=== PATIENT | male | born 1945 | race Caucasian/White ===

== ENCOUNTER 2018-03-24 12:06 | Inpatient (IN) | payer MEDICARE ==
[2018-03-24] MEDS ORDERED: Bisacodyl 10 MG Supp RECTAL PRN (16:55)
[2018-03-24] MEDS ORDERED: hydrOXYzine HCl 25 MG Tab PO PRN (16:58)
[2018-03-24] MEDS ORDERED: Nitroglycerin 0.4 MG Tab.SL SL PRN (17:01)
[2018-03-24] MEDS ORDERED: Polyethylene Glycol 3350 Powder 17 GM Packet PO PRN (17:06)
[2018-03-24] MEDS ORDERED: Tuberculin, PPD 5 Units/0.1 ML 1 ML MDV IDERM ONE ×2 (17:55→19:58)
[2018-03-24] MEDS: Acetaminophen 325 MG Tab PO SCH ×2 (18:43→22:13)
[2018-03-24] MEDS: traMADol 50 MG Tab PO SCH ×2 (19:12→22:11)
[2018-03-24] MEDS: Insulin Aspart 100 Units/ML 3 ML Pen SUBCUT SCH (19:33)
[2018-03-24] MEDS: Gabapentin 300 MG Cap PO SCH (19:34)
[2018-03-24] MEDS: glipiZIDE 5 MG Tab PO SCH (19:34)
[2018-03-24] MEDS: Metoprolol Tartrate 25 MG Tab PO SCH (19:35)
[2018-03-24] MEDS ORDERED: METHOTREXATE 12.5 MG PO SCH (20:00)
[2018-03-24] MEDS ORDERED: Gabapentin 600 MG Tab PO SCH (20:00)
--- NOTE | 2018-03-24 20:02 | PCM.HP ---
H&P History of Present Illness - General Date of Service: 03/24/18 Admit Problem/Dx: Admission Diagnosis/Problem Admission Diagnosis/Problem Weakness Source of Information: Patient, Old Records History Limitations: Reports: No Limitations - History of Present Illness Initial Comments - Free Text/Narative: This is a 72yo M Hartshorn here for subacute rehabilitation for post left hip Arthroplasty. He has weakness both generalized and left lower leg weakness. He states he has been feeling weak for the past month and even more so after the surgery. He has noticed his weakness progress over the years but since the recent hospital stay and procedures he has been weaker than ever. He denies any pain at this time and denies any fever, no chills, no chest pain or shortness of breath. Location: Reports: Lower Extremity, Left, Generalized Associated Symptoms: Reports: Weakness Left Hip Pain Score (Numeric/FACES): 2 - Related Data Allergies/Adverse Reactions: Allergies Allergy/AdvReac Type Severity Reaction Status Date / Time [id number]-Nds Reductase AdvReac Intermediate Muscle Verified 03/24/18 18:01 Inhibitor Aches Home Medications: Home Meds Chlorthalidone 25 mg PO DAILY 03/24/18 [History] Folic Acid 1 mg PO DAILY 03/24/18 [History] Gabapentin [Neurontin] 300 mg PO TID 03/24/18 [History] Insulin Glargine,Hum.Rec.Anlog [Basaglar Kwikpen U-100] 54 units SQ DAILY [History] Losartan [Cozaar] 50 mg PO DAILY 03/24/18 [History] Methotrexate [Xatmep] 2.5 mg PO ASDIRECTED 03/24/18 [History] Omeprazole 20 mg PO DAILY 03/24/18 [History] Rosuvastatin [Crestor] 10 mg PO DAILY 03/24/18 [History] glipiZIDE [Glucotrol] 10 mg PO DAILY 03/24/18 [History] metFORMIN HCl [Metformin HCl] 1,000 mg PO BID 03/24/18 [History] Past Medical History HEENT History: Reports: None Cardiovascular History: Reports: DE, Stents Gastrointestinal History: Reports: GERD Genitourinary History: Reports: Other (See Below) Other Genitourinary History: renal biopsy done in 2013 Musculoskeletal History: Reports: Arthritis, Osteoarthritis Endocrine/Metabolic History: Reports: Diabetes, Type II Hematologic History: Reports: Anemia Immunologic History: Reports: Other (See Below) Other Immunologic History: takes metotrexate Oncologic (Cancer) History: Reports: Colon - Past Surgical History Musculoskeletal Surgical History: Reports: Arthroscopic Knee, Carpal Tunnel, Hip Replacement, Shoulder Surgery, Other (See Below) Other Musculoskeletal Surgeries/Procedures:: lower back and neck surgery Social & Family History - Family History Family Medical History: Noncontributory - Tobacco Use Smoking Status *Q: Former Smoker Years of Tobacco use: 25 Used Tobacco, but Quit: Yes Month/Year Tobacco Last Used: Second Hand Smoke Exposure: No - Caffeine Use Caffeine Use: Reports: Coffee, Soda - Recreational Drug Use Recreational Drug Use: No H&P Review of Systems - Review of Systems: Review Of Systems: ROS reveals no pertinent complaints other than HPI. Exam - Exam Exam: See Below - Vital Signs Vital Signs: Last Vital Signs Temp 36.7 C 03/24/18 16:03 Pulse 62 03/24/18 19:35 Resp 18 03/24/18 16:03 BP 124/72 03/24/18 19:35 Pulse Ox 99 03/24/18 16:03 Weight: 96.615 kg - Exam General: Alert, Oriented, Cooperative HEENT: PERRLA, Conjunctiva Clear, EACs Clear, EOMI, Hearing Intact Neck: Supple, Trachea Midline Lungs: Clear to Auscultation, Normal Respiratory Effort Cardiovascular: Regular Rate, Regular Rhythm GI/Abdominal Exam: Normal Bowel Sounds, Soft, Non-Tender, No Organomegaly Back Exam: Normal Inspection, Full Range of Motion Extremities: Normal Inspection, Normal Range of Motion, Non-Tender Peripheral Pulses: 2+: Dorsalis Pedis (L), Dorsalis Pedis (R) Skin: Warm, Dry, Intact, Incision (lefthip - healing well - no drainage) Neurological: Cranial Nerves Intact, Reflexes Equal Bilateral - Patient Data Lab Results Last 24 hrs: Laboratory Results - last 24 hr 03/24/18 Range/Units 19:32 POC Glucose 184 H (74-110) mg/dL - Problem List (1) History of total left hip arthroplasty SNOMED Code(s): 466928124209 ICD Code: Z96.642 - PRESENCE OF LEFT ARTIFICIAL HIP JOINT Status: Acute Priority: High Current Visit: Yes (2) Generalized muscle weakness SNOMED Code(s): 55586440, 58399852 ICD Code: M62.81 - MUSCLE WEAKNESS (GENERALIZED) Status: Acute Priority: High Current Visit: Yes (3) Left hip pain SNOMED Code(s): 37205747 ICD Code: M25.552 - PAIN IN LEFT HIP Status: Acute Priority: High Current Visit: Yes Problem List Initiated/Reviewed/Updated: Yes Orders Last 24hrs: Active Orders 24 hr Category Date Time Status Patient Status [ADT] Routine ADT 03/24/18 16:00 Active Consult to Electronics Mechanic [CONS] Routine Cons 03/24/18 19:58 Active Consult to Home Health [CONS] Routine Cons 03/24/18 19:58 Active Consult to Infection Prevention [CONS] Routine Cons 03/24/18 19:58 Active Consult to Wound Care Services [CONS] Routine Cons 03/24/18 19:58 Active OT Evaluation and Treatment [CONS] Routine Cons 03/24/18 19:58 Active PT Evaluation and Treatment [CONS] Routine Cons 03/24/18 19:58 Active Acetaminophen [Tylenol] Med 03/24/18 16:45 Active 650 mg PO Q6H Aspirin [Ecotrin] Med 03/25/18 08:00 Active 325 mg PO DAILY Bisacodyl [Dulcolax] Med 03/24/18 16:55 Active 10 mg RECTAL DAILY PRN Chlorthalidone Med 03/25/18 08:00 Active 25 mg PO DAILY Chlorthalidone Med 03/25/18 08:00 Ordered 25 mg PO DAILY Docusate Sodium/Sennosides [Senna Plus] Med 03/24/18 20:00 Active 1 tab PO BID Folic Acid Med 03/25/18 08:00 Ordered 1 mg PO DAILY Gabapentin [Neurontin] Med 03/24/18 20:00 Active 300 mg PO TID Gabapentin [Neurontin] Med 03/24/18 20:00 Ordered 300 mg PO TID Insulin Aspart [NovoLOG] Med 03/24/18 18:00 Active See Protocol SUBCUT TIDMEALS Insulin Detemir [Levemir] Med 03/25/18 08:00 Active 54 unit SUBCUT DAILY Insulin Glarg,Human.Rec.Analog [LantUS Solostar] Med 03/25/18 08:00 Ordered 54 units SUBCUT DAILY Losartan [Cozaar] Med 03/25/18 08:00 Active 50 mg PO DAILY Losartan [Cozaar] Med 03/25/18 08:00 Ordered 50 mg PO DAILY Methotrexate [Xatmep] Med 03/24/18 20:00 Ordered 2.5 mg PO ASDIRECTED Metoprolol Tartrate [Lopressor] Med 03/24/18 20:00 Active 25 mg PO BID Nitroglycerin [Nitrostat] Med 03/24/18 17:01 Active 0.4 mg SL ASDIRECTED PRN Omeprazole [Omeprazole] Med 03/25/18 08:00 Ordered 20 mg PO DAILY Pantoprazole [ProTONIX] Med 03/25/18 07:00 Active 40 mg PO ACBREAKFAST Polyethylene Glycol 3350 [MiraLAX] Med 03/24/18 17:06 Active 17 gm PO DAILY PRN Rosuvastatin [Crestor] Med 03/25/18 08:00 Ordered 10 mg PO DAILY Tuberculin, PPD [Aplisol] Med 03/24/18 19:58 Once 5 unit IDERM ONETIME ONE glipiZIDE [Glucotrol] Med 03/25/18 08:00 Ordered 10 mg PO DAILY glipiZIDE [Glucotrol] Med 03/24/18 17:00 Active 5 mg PO BIDMEALS hydrOXYzine HCl [Atarax] Med 03/24/18 16:58 Active 25 mg PO Q6H PRN metFORMIN [Glucophage] Med 03/24/18 20:00 Ordered 1,000 mg PO BID oxyCODONE Med 03/24/18 17:03 Active 5 - 10 mg PO Q4H PRN traMADol [Ultram] Med 03/24/18 17:15 Active 50 mg PO Q6H Resuscitation Status Routine Resus Stat 03/24/18 19:58 Ordered Medication Orders Acetaminophen (Tylenol) 650 mg PO Q6H [facility] Last Admin: 03/24/18 18:43 Dose: Not Given Aspirin (Ecotrin) 325 mg PO DAILY [facility] Bisacodyl (Dulcolax) 10 mg RECTAL DAILY PRN PRN Reason: CONSTIPATION Chlorthalidone (Chlorthalidone) 25 mg PO DAILY [facility] Chlorthalidone (Chlorthalidone) 25 mg PO DAILY [facility] Folic Acid (Folic Acid) 1 mg PO DAILY [facility] Gabapentin (Neurontin) 300 mg PO TID [facility] Last Admin: 03/24/18 19:34 Dose: 300 mg Gabapentin (Neurontin) 300 mg PO TID [facility] Glipizide (Glucotrol) 5 mg PO BIDMEALS [facility] Last Admin: 03/24/18 19:34 Dose: Not Given Hydroxyzine HCl (Atarax) 25 mg PO Q6H PRN PRN Reason: PAIN Insulin Aspart (Novolog) 0 unit SUBCUT TIDMEALS [facility]; Protocol Last Admin: 03/24/18 19:33 Dose: Not Given Insulin Detemir (Levemir) 54 unit SUBCUT DAILY [facility] Insulin Glargine (Lantus Solostar) 54 units SUBCUT DAILY [facility] Losartan Potassium (Cozaar) 50 mg PO DAILY [facility] Losartan Potassium (Cozaar) 50 mg PO DAILY [facility] Metformin HCl (Glucophage) 1,000 mg PO BID [facility] Metoprolol Tartrate (Lopressor) 25 mg PO BID [facility] Last Admin: 03/24/18 19:35 Dose: 25 mg Nitroglycerin (Nitrostat) 0.4 mg SL ASDIRECTED PRN PRN Reason: CHEST PAIN Non-Formulary Medication (Glipizide [Glucotrol]) 10 mg PO DAILY [facility] Non-Formulary Medication (Methotrexate [Xatmep]) 2.5 mg PO ASDIRECTED [facility] Non-Formulary Medication (Omeprazole [Omeprazole]) 20 mg PO DAILY [facility] Non-Formulary Medication (Rosuvastatin [Crestor]) 10 mg PO DAILY [facility] Oxycodone HCl (Oxycodone) 5 - 10 mg PO Q4H PRN PRN Reason: MODERATE PAIN Pantoprazole Sodium (Protonix) 40 mg PO ACBREAKFAST [facility] Polyethylene Glycol (Miralax) 17 gm PO DAILY PRN PRN Reason: DIARRHEA Senna/Docusate Sodium (Senna Plus) 1 tab PO BID [facility] Last Admin: 03/24/18 19:35 Dose: 1 tab Tramadol HCl (Ultram) 50 mg PO Q6H [facility] Last Admin: 03/24/18 19:12 Dose: Not Given Tuberculin PPD (Aplisol) 5 unit IDERM ONETIME ONE Stop: 03/24/18 19:59 Assessment/Plan Comment:: Patient does require continued physical therapy at least until next week. He has strength but issues with endurance and stability. PT/OT evaluated and also recommend at least a week of therapy for further evaluation and treatment of weakness. Patient needs some improvement to show his ability to be independent. At this time he is very weak and has no stamina and would not be a candidate to be discharged. Patient pain is controlled. Follow up with Orthopedics as directed. Patient has history of abnormal bleeding per patient and we did discuss possible reasons he is not on DVT prophylactic medications. Patient understands risks and benefits.
[2018-03-24] MEDS: metFORMIN 1,000 MG Tab PO SCH (21:03)
[2018-03-25] MEDS: Pantoprazole 40 MG Tab.CR PO SCH (06:17)
[2018-03-25] MEDS: traMADol 50 MG Tab PO SCH ×4 (06:18→17:15)
[2018-03-25] MEDS: Acetaminophen 325 MG Tab PO SCH ×3 (06:19→17:15)
[2018-03-25] MEDS ORDERED: Insulin Glargine,Human Rec. Analog 100 Units/ML 3 ML Pen SUBCUT SCH (08:00)
[2018-03-25] MEDS ORDERED: Chlorthalidone 25 MG Tab PO SCH (08:00)
[2018-03-25] MEDS ORDERED: Non-Formulary Medication 1 Each (Omeprazole [Omeprazole] 20 MG) PO SCH (08:00)
[2018-03-25] MEDS: Losartan 50 MG Tab PO SCH (08:00)
[2018-03-25] MEDS ORDERED: Losartan 50 MG Tab PO SCH (08:00)
[2018-03-25] MEDS ORDERED: GLIPIZIDE 10 MG PO SCH (08:00)
[2018-03-25] MEDS: Rosuvastatin 20 MG Tab PO SCH (08:01)
[2018-03-25] MEDS: Chlorthalidone 25 MG Tab PO SCH (08:01)
[2018-03-25] MEDS: Aspirin 325 MG Tab.EC PO SCH (08:01)
[2018-03-25] MEDS: metFORMIN 1,000 MG Tab PO SCH ×2 (08:02→17:13)
[2018-03-25] MEDS: glipiZIDE 5 MG Tab PO SCH ×2 (08:02→17:15)
[2018-03-25] MEDS: Metoprolol Tartrate 25 MG Tab PO SCH ×2 (08:03→19:11)
[2018-03-25] MEDS: Folic Acid 1 MG Tab PO SCH (08:03)
[2018-03-25] MEDS: Gabapentin 300 MG Cap PO SCH ×3 (08:03→19:12)
[2018-03-25] MEDS: Insulin Detemir 100 Units/ML 3 ML Pen SUBCUT SCH (08:10)
[2018-03-25] MEDS: Insulin Aspart 100 Units/ML 3 ML Pen SUBCUT SCH ×3 (08:11→17:26)
[2018-03-25] MEDS ORDERED: Tuberculin, PPD 5 Units/0.1 ML 1 ML MDV IDERM ONE (09:00)
[2018-03-25] MEDS: oxyCODONE 5 MG Tab PO PRN (19:12)
[2018-03-26] MEDS: traMADol 50 MG Tab PO SCH ×5 (00:33→23:09)
[2018-03-26] MEDS: Acetaminophen 325 MG Tab PO SCH ×5 (00:34→23:08)
[2018-03-26] MEDS: Pantoprazole 40 MG Tab.CR PO SCH (06:00)
[2018-03-26] MEDS: Insulin Aspart 100 Units/ML 3 ML Pen SUBCUT SCH ×3 (07:57→17:08)
[2018-03-26] MEDS: Gabapentin 300 MG Cap PO SCH ×3 (07:58→20:14)
[2018-03-26] MEDS: Chlorthalidone 25 MG Tab PO SCH (07:58)
[2018-03-26] MEDS: Metoprolol Tartrate 25 MG Tab PO SCH ×2 (07:58→20:14)
[2018-03-26] MEDS: glipiZIDE 5 MG Tab PO SCH ×2 (07:59→17:07)
[2018-03-26] MEDS: Aspirin 325 MG Tab.EC PO SCH (07:59)
[2018-03-26] MEDS: metFORMIN 1,000 MG Tab PO SCH ×2 (07:59→17:06)
[2018-03-26] MEDS: Losartan 50 MG Tab PO SCH (07:59)
[2018-03-26] MEDS: Rosuvastatin 20 MG Tab PO SCH (08:00)
[2018-03-26] MEDS: Folic Acid 1 MG Tab PO SCH (08:00)
[2018-03-26] MEDS: Insulin Detemir 100 Units/ML 3 ML Pen SUBCUT SCH (08:07)
[2018-03-26] MEDS: oxyCODONE 5 MG Tab PO PRN (20:14)
[2018-03-27] MEDS: oxyCODONE 5 MG Tab PO PRN ×2 (02:27→07:35)
[2018-03-27] MEDS: Pantoprazole 40 MG Tab.CR PO SCH (06:27)
[2018-03-27] MEDS: traMADol 50 MG Tab PO SCH ×4 (06:27→22:43)
[2018-03-27] MEDS: Acetaminophen 325 MG Tab PO SCH ×4 (06:28→22:42)
[2018-03-27] MEDS: Chlorthalidone 25 MG Tab PO SCH (07:30)
[2018-03-27] MEDS: Metoprolol Tartrate 25 MG Tab PO SCH ×2 (07:30→19:26)
[2018-03-27] MEDS: Gabapentin 300 MG Cap PO SCH ×3 (07:30→19:26)
[2018-03-27] MEDS: glipiZIDE 5 MG Tab PO SCH ×2 (07:31→17:31)
[2018-03-27] MEDS: Insulin Detemir 100 Units/ML 3 ML Pen SUBCUT SCH (07:31)
[2018-03-27] MEDS: Folic Acid 1 MG Tab PO SCH (07:31)
[2018-03-27] MEDS: Aspirin 325 MG Tab.EC PO SCH (07:31)
[2018-03-27] MEDS: Losartan 50 MG Tab PO SCH (07:31)
[2018-03-27] MEDS: metFORMIN 1,000 MG Tab PO SCH ×2 (07:31→17:31)
[2018-03-27] MEDS: Rosuvastatin 20 MG Tab PO SCH (07:32)
[2018-03-27] MEDS: Insulin Aspart 100 Units/ML 3 ML Pen SUBCUT SCH ×3 (07:40→17:39)
[2018-03-28] MEDS: oxyCODONE 5 MG Tab PO PRN ×2 (00:39→14:19)
[2018-03-28] MEDS: Acetaminophen 325 MG Tab PO SCH ×4 (05:58→23:00)
[2018-03-28] MEDS: traMADol 50 MG Tab PO SCH ×4 (05:58→22:59)
[2018-03-28] MEDS: Pantoprazole 40 MG Tab.CR PO SCH (06:00)
[2018-03-28] MEDS: Rosuvastatin 20 MG Tab PO SCH (08:34)
[2018-03-28] MEDS: Chlorthalidone 25 MG Tab PO SCH (08:35)
[2018-03-28] MEDS: Aspirin 325 MG Tab.EC PO SCH (08:37)
[2018-03-28] MEDS: Losartan 50 MG Tab PO SCH (08:37)
[2018-03-28] MEDS: Gabapentin 300 MG Cap PO SCH ×3 (08:37→19:26)
[2018-03-28] MEDS: metFORMIN 1,000 MG Tab PO SCH ×2 (08:38→17:04)
[2018-03-28] MEDS: Folic Acid 1 MG Tab PO SCH (08:38)
[2018-03-28] MEDS: glipiZIDE 5 MG Tab PO SCH ×2 (08:38→17:04)
[2018-03-28] MEDS: Metoprolol Tartrate 25 MG Tab PO SCH ×2 (08:38→19:27)
[2018-03-28] MEDS: Insulin Detemir 100 Units/ML 3 ML Pen SUBCUT SCH (08:40)
[2018-03-28] MEDS: Insulin Aspart 100 Units/ML 3 ML Pen SUBCUT SCH ×3 (08:56→17:04)
[2018-03-28] MEDS: METHOTREXATE 12.5 MG PO SCH ×2 (12:16→12:50)
[2018-03-29] MEDS: oxyCODONE 5 MG Tab PO PRN (01:04)
[2018-03-29] MEDS: traMADol 50 MG Tab PO SCH ×4 (02:03→19:55)
[2018-03-29] MEDS: Acetaminophen 325 MG Tab PO SCH ×4 (04:32→22:30)
[2018-03-29] MEDS: Pantoprazole 40 MG Tab.CR PO SCH (06:32)
[2018-03-29] MEDS: glipiZIDE 5 MG Tab PO SCH ×2 (07:37→16:53)
[2018-03-29] MEDS: Losartan 50 MG Tab PO SCH (07:37)
[2018-03-29] MEDS: Metoprolol Tartrate 25 MG Tab PO SCH ×2 (07:38→19:54)
[2018-03-29] MEDS: metFORMIN 1,000 MG Tab PO SCH ×2 (07:38→16:52)
[2018-03-29] MEDS: Gabapentin 300 MG Cap PO SCH ×3 (07:38→19:52)
[2018-03-29] MEDS: Chlorthalidone 25 MG Tab PO SCH (07:39)
[2018-03-29] MEDS: Aspirin 325 MG Tab.EC PO SCH (07:39)
[2018-03-29] MEDS: Folic Acid 1 MG Tab PO SCH (07:40)
[2018-03-29] MEDS: Rosuvastatin 20 MG Tab PO SCH (07:40)
[2018-03-29] MEDS: Insulin Aspart 100 Units/ML 3 ML Pen SUBCUT SCH ×3 (08:05→17:47)
[2018-03-29] MEDS: Insulin Detemir 100 Units/ML 3 ML Pen SUBCUT SCH (08:07)
--- NOTE | 2018-03-29 09:51 | PCM.SN ---
- Free Text/Narrative Note: Patient doing well today and in good spirits. He denies any concerns today. He did report some left hip tenderness with therapy which as resolved with rest.
[2018-03-30] MEDS: traMADol 50 MG Tab PO SCH ×4 (01:50→19:35)
[2018-03-30] MEDS: Acetaminophen 325 MG Tab PO SCH ×4 (04:31→22:49)
[2018-03-30] MEDS: Pantoprazole 40 MG Tab.CR PO SCH (07:05)
[2018-03-30] MEDS: Metoprolol Tartrate 25 MG Tab PO SCH ×2 (07:32→19:35)
[2018-03-30] MEDS: Gabapentin 300 MG Cap PO SCH ×3 (07:32→19:34)
[2018-03-30] MEDS: glipiZIDE 5 MG Tab PO SCH ×2 (07:33→16:47)
[2018-03-30] MEDS: Losartan 50 MG Tab PO SCH (07:33)
[2018-03-30] MEDS: metFORMIN 1,000 MG Tab PO SCH ×2 (07:33→16:47)
[2018-03-30] MEDS: Aspirin 325 MG Tab.EC PO SCH (07:33)
[2018-03-30] MEDS: Folic Acid 1 MG Tab PO SCH (07:34)
[2018-03-30] MEDS: Insulin Aspart 100 Units/ML 3 ML Pen SUBCUT SCH ×3 (07:34→17:25)
[2018-03-30] MEDS: Chlorthalidone 25 MG Tab PO SCH (07:34)
[2018-03-30] MEDS: Rosuvastatin 20 MG Tab PO SCH (07:35)
[2018-03-30] MEDS: Insulin Detemir 100 Units/ML 3 ML Pen SUBCUT SCH (08:12)
[2018-03-31] MEDS: traMADol 50 MG Tab PO SCH ×4 (02:43→19:57)
[2018-03-31] MEDS: Acetaminophen 325 MG Tab PO SCH ×5 (06:06→22:19)
[2018-03-31] MEDS: Pantoprazole 40 MG Tab.CR PO SCH (06:32)
[2018-03-31] MEDS: Gabapentin 300 MG Cap PO SCH ×3 (07:42→19:59)
[2018-03-31] MEDS: Aspirin 325 MG Tab.EC PO SCH (07:42)
[2018-03-31] MEDS: Chlorthalidone 25 MG Tab PO SCH (07:43)
[2018-03-31] MEDS: Losartan 50 MG Tab PO SCH (07:44)
[2018-03-31] MEDS: Folic Acid 1 MG Tab PO SCH (07:45)
[2018-03-31] MEDS: Rosuvastatin 20 MG Tab PO SCH (07:45)
[2018-03-31] MEDS: metFORMIN 1,000 MG Tab PO SCH ×2 (07:45→17:15)
[2018-03-31] MEDS: glipiZIDE 5 MG Tab PO SCH ×2 (07:46→17:14)
[2018-03-31] MEDS: Metoprolol Tartrate 25 MG Tab PO SCH ×2 (07:46→19:58)
[2018-03-31] MEDS: Insulin Aspart 100 Units/ML 3 ML Pen SUBCUT SCH ×3 (07:48→18:10)
[2018-03-31] MEDS: Insulin Detemir 100 Units/ML 3 ML Pen SUBCUT SCH (08:24)
--- NOTE | 2018-03-31 11:32 | PCM.PN ---
- General Info Date of Service: 03/31/18 Subjective Update: Patient has been working well with PT/OT. He wishes to go home. He denies any current issues and does have f/u with Orthopedics scheduled. Functional Status: Reports: Pain Controlled, Tolerating Diet, Ambulating - Review of Systems General: Reports: Weakness HEENT: Reports: No Symptoms Pulmonary: Reports: No Symptoms Cardiovascular: Reports: No Symptoms Gastrointestinal: Reports: No Symptoms Genitourinary: Reports: No Symptoms Musculoskeletal: Reports: No Symptoms Skin: Reports: No Symptoms Neurological: Reports: No Symptoms Psychiatric: Reports: No Symptoms - Patient Data Vitals - Most Recent: Last Vital Signs Temp 36.6 C 03/31/18 07:50 Pulse 78 03/31/18 07:50 Resp 16 03/31/18 07:50 BP 116/65 03/31/18 07:50 Pulse Ox 99 03/31/18 07:50 Weight - Most Recent: 93.259 kg Lab Results Last 24 Hours: Laboratory Results - last 24 hr 03/30/18 03/30/18 03/31/18 Range/Units 10:48 15:43 07:41 POC Glucose 126 H 175 H 149 H (74-110) mg/dL Med Orders - Current: Current Medications Acetaminophen (Tylenol) 650 mg PO 0500,1100,1700,2300 [facility] Last Admin: 03/31/18 06:33 Dose: 650 mg Aspirin (Ecotrin) 325 mg PO DAILY [facility] Last Admin: 03/31/18 07:42 Dose: 325 mg Bisacodyl (Dulcolax) 10 mg RECTAL DAILY PRN PRN Reason: CONSTIPATION Chlorthalidone (Chlorthalidone) 25 mg PO DAILY [facility] Last Admin: 03/31/18 07:43 Dose: 25 mg Folic Acid (Folic Acid) 1 mg PO DAILY [facility] Last Admin: 03/31/18 07:45 Dose: 1 mg Gabapentin (Neurontin) 300 mg PO TID [facility] Last Admin: 03/31/18 07:42 Dose: 300 mg Glipizide (Glucotrol) 5 mg PO BIDMEALS [facility] Last Admin: 03/31/18 07:46 Dose: 5 mg Hydroxyzine HCl (Atarax) 25 mg PO Q6H PRN PRN Reason: PAIN Insulin Aspart (Novolog) 0 unit SUBCUT TIDMEALS [facility]; Protocol Last Admin: 03/31/18 07:48 Dose: Not Given Insulin Detemir (Levemir) 54 unit SUBCUT DAILY [facility] Last Admin: 03/31/18 08:24 Dose: 54 unit Losartan Potassium (Cozaar) 50 mg PO DAILY [facility] Last Admin: 03/31/18 07:44 Dose: 50 mg Metformin HCl (Glucophage) 1,000 mg PO BIDMEALS [facility] Last Admin: 03/31/18 07:45 Dose: 1,000 mg Metoprolol Tartrate (Lopressor) 25 mg PO BID [facility] Last Admin: 03/31/18 07:46 Dose: 25 mg Nitroglycerin (Nitrostat) 0.4 mg SL ASDIRECTED PRN PRN Reason: CHEST PAIN Non-Formulary Medication (Methotrexate [Xatmep]) 12.5 mg PO Fr [facility] Last Admin: 03/28/18 12:50 Dose: 12.5 mg Oxycodone HCl (Oxycodone) 5 - 10 mg PO Q4H PRN PRN Reason: MODERATE PAIN Last Admin: 03/29/18 01:04 Dose: 10 mg Pantoprazole Sodium (Protonix) 40 mg PO ACBREAKFAST [facility] Last Admin: 03/31/18 06:32 Dose: 40 mg Polyethylene Glycol (Miralax) 17 gm PO DAILY PRN PRN Reason: DIARRHEA Rosuvastatin Calcium (Crestor) 10 mg PO DAILY [facility] Last Admin: 03/31/18 07:45 Dose: 10 mg Senna/Docusate Sodium (Senna Plus) 1 tab PO BID [facility] Last Admin: 03/31/18 07:47 Dose: 1 tab Tramadol HCl (Ultram) 50 mg PO 0200,0800,1400,2000 [facility] Last Admin: 03/31/18 07:47 Dose: 50 mg Discontinued Medications Acetaminophen (Tylenol) 650 mg PO Q6H [facility] Last Admin: 03/28/18 23:00 Dose: 650 mg Non-Formulary Medication (Methotrexate [Xatmep]) 12.5 mg PO ASDIRECTED [facility] Tramadol HCl (Ultram) 50 mg PO Q6H [facility] Last Admin: 03/28/18 22:59 Dose: 50 mg Tuberculin PPD (Aplisol) 5 unit IDERM ONETIME ONE Stop: 03/24/18 17:56 Last Admin: 03/24/18 18:41 Dose: 5 unit Tuberculin PPD (Aplisol) 5 unit IDERM ONETIME ONE Stop: 03/25/18 09:01 - Exam General: Alert, Oriented, Cooperative HEENT: Pupils Equal, Pupils Reactive, EOMI Neck: Supple Lungs: Clear to Auscultation, Normal Respiratory Effort Cardiovascular: Regular Rate, Regular Rhythm Back Exam: Normal Inspection Extremities: Normal Inspection Peripheral Pulses: 2+: Dorsalis Pedis (L), Dorsalis Pedis (R) Skin: Warm, Dry, Intact - Problem List & Annotations (1) History of total left hip arthroplasty SNOMED Code(s): 274872566563 Code(s): Z96.642 - PRESENCE OF LEFT ARTIFICIAL HIP JOINT Status: Acute Priority: High Current Visit: Yes (2) Generalized muscle weakness SNOMED Code(s): 34466388, 25127806 Code(s): M62.81 - MUSCLE WEAKNESS (GENERALIZED) Status: Acute Priority: High Current Visit: Yes (3) Left hip pain SNOMED Code(s): 18722677 Code(s): M25.552 - PAIN IN LEFT HIP Status: Acute Priority: High Current Visit: Yes - Problem List Review Problem List Initiated/Reviewed/Updated: Yes - Plan Plan:: Patient does require continued physical therapy at least until next week. He has strength but issues with endurance and stability. PT/OT evaluated and also recommend at least a week of therapy for further evaluation and treatment of weakness. Patient needs some improvement to show his ability to be independent. At this time he is very weak and has no stamina and would not be a candidate to be discharged. Patient pain is controlled. Follow up with Orthopedics as directed. Patient has history of abnormal bleeding per patient and we did discuss possible reasons he is not on DVT prophylactic medications. Patient understands risks and benefits. 03/31/18 Discussed discharge planning and care. Patient plan for discharge in the am. PT/OT cleared. Patient will f/u with outpatient therapy as scheduled.
[2018-04-01] MEDS: traMADol 50 MG Tab PO SCH ×2 (01:38→07:59)
[2018-04-01] MEDS: Acetaminophen 325 MG Tab PO SCH ×2 (07:23→12:15)
[2018-04-01] MEDS: glipiZIDE 5 MG Tab PO SCH (08:00)
[2018-04-01] MEDS: Gabapentin 300 MG Cap PO SCH (08:00)
[2018-04-01] MEDS: Aspirin 325 MG Tab.EC PO SCH (08:01)
[2018-04-01] MEDS: Chlorthalidone 25 MG Tab PO SCH (08:01)
[2018-04-01] MEDS: Metoprolol Tartrate 25 MG Tab PO SCH (08:02)
[2018-04-01] MEDS: Folic Acid 1 MG Tab PO SCH (08:02)
[2018-04-01] MEDS: Losartan 50 MG Tab PO SCH (08:02)
[2018-04-01] MEDS: Pantoprazole 40 MG Tab.CR PO SCH (08:02)
[2018-04-01] MEDS: Rosuvastatin 20 MG Tab PO SCH (08:02)
[2018-04-01] MEDS: metFORMIN 1,000 MG Tab PO SCH (08:02)
[2018-04-01] MEDS: Insulin Detemir 100 Units/ML 3 ML Pen SUBCUT SCH (08:04)
[2018-04-01] MEDS: Insulin Aspart 100 Units/ML 3 ML Pen SUBCUT SCH ×2 (08:04→12:54)
--- NOTE | 2018-04-01 11:38 | PCM.DCSUM1 ---
Discharge Summary - Discharge Data Discharge Date: 04/01/18 Discharge Disposition: Home, Self-Care 01 Condition: Good - Discharge Diagnosis/Problem(s) (1) History of total left hip arthroplasty SNOMED Code(s): 015627146676 ICD Code: Z96.642 - PRESENCE OF LEFT ARTIFICIAL HIP JOINT Status: Acute Priority: High Current Visit: Yes (2) Generalized muscle weakness SNOMED Code(s): 56926245, 73265939 ICD Code: M62.81 - MUSCLE WEAKNESS (GENERALIZED) Status: Acute Priority: High Current Visit: Yes (3) Left hip pain SNOMED Code(s): 11759167 ICD Code: M25.552 - PAIN IN LEFT HIP Status: Acute Priority: High Current Visit: Yes - Patient Summary/Data Consults: Consultations 03/24/18 19:58 Consult to [place] [CONS] Routine Comment: Physician Instructions: Quantity: Consult to Home Health [CONS] Routine Comment: Physician Instructions: Consult to Infection Prevention [CONS] Routine Comment: Physician Instructions: Consult to Wound Care Services [CONS] Routine Comment: Physician Instructions: OT Evaluation and Treatment [CONS] Routine Please Evaluate and Treat. OT Reason for Consult: ADL's This query below is only for informational purposes and is not editable. Admission Diagnosis/Problem: Weakness PT Evaluation and Treatment [CONS] Routine Please Evaluate and Treat. PT Reason for Consult: Post op Ortho Surgery This query below is only for informational purposes and is not editable. Admission Diagnosis/Problem: Weakness - Discharge Plan Home Medications: Home Meds Chlorthalidone 25 mg PO DAILY 03/24/18 [History] Folic Acid 1 mg PO DAILY 03/24/18 [History] Gabapentin [Neurontin] 300 mg PO TID 03/24/18 [History] Insulin Glargine,Hum.Rec.Anlog [Basaglar Kwikpen U-100] 54 units SQ DAILY [History] Losartan [Cozaar] 50 mg PO DAILY 03/24/18 [History] Methotrexate [Xatmep] 2.5 mg PO ASDIRECTED 03/24/18 [History] Omeprazole 20 mg PO DAILY 03/24/18 [History] Rosuvastatin [Crestor] 10 mg PO DAILY 03/24/18 [History] glipiZIDE [Glucotrol] 10 mg PO DAILY 03/24/18 [History] metFORMIN HCl [Metformin HCl] 1,000 mg PO BID 03/24/18 [History] Patient Handouts: Surgical Site Infections FAQs - GÓMEZ - Discharge Summary/Plan Comment DC Time >30 min.: Yes Discharge Summary/Plan Comment: Counseled on discharge instructions. Discussed medications and pain management. Patient will f/u with PT/OT today for rehab planning in [place]. Patient will f/u with Orthopedics as scheduled. F/u in clinic for any further concerns and for follow up. - Patient Data Vitals - Most Recent: Last Vital Signs Temp 36.2 C 04/01/18 08:00 Pulse 79 04/01/18 08:02 Resp 18 04/01/18 08:00 BP 136/82 04/01/18 08:02 Pulse Ox 100 04/01/18 08:00 Weight - Most Recent: 93.259 kg Lab Results - Last 24 hrs: Laboratory Results - last 24 hr 03/31/18 03/31/18 03/31/18 Range/Units 11:19 16:11 18:49 POC Glucose 85 81 160 H (74-110) mg/dL 04/01/18 Range/Units 06:55 POC Glucose 78 (74-110) mg/dL Med Orders - Current: Current Medications Acetaminophen (Tylenol) 650 mg PO 0500,1100,1700,2300 [facility] Last Admin: 04/01/18 07:23 Dose: Not Given Aspirin (Ecotrin) 325 mg PO DAILY [facility] Last Admin: 04/01/18 08:01 Dose: 325 mg Bisacodyl (Dulcolax) 10 mg RECTAL DAILY PRN PRN Reason: CONSTIPATION Chlorthalidone (Chlorthalidone) 25 mg PO DAILY [facility] Last Admin: 04/01/18 08:01 Dose: 25 mg Folic Acid (Folic Acid) 1 mg PO DAILY [facility] Last Admin: 04/01/18 08:02 Dose: 1 mg Gabapentin (Neurontin) 300 mg PO TID [facility] Last Admin: 04/01/18 08:00 Dose: 300 mg Glipizide (Glucotrol) 5 mg PO BIDMEALS [facility] Last Admin: 04/01/18 08:00 Dose: 5 mg Hydroxyzine HCl (Atarax) 25 mg PO Q6H PRN PRN Reason: PAIN Insulin Aspart (Novolog) 0 unit SUBCUT TIDMEALS [facility]; Protocol Last Admin: 04/01/18 08:04 Dose: Not Given Insulin Detemir (Levemir) 54 unit SUBCUT DAILY [facility] Last Admin: 04/01/18 08:04 Dose: 54 unit Losartan Potassium (Cozaar) 50 mg PO DAILY [facility] Last Admin: 04/01/18 08:02 Dose: 50 mg Metformin HCl (Glucophage) 1,000 mg PO BIDMEALS [facility] Last Admin: 04/01/18 08:02 Dose: 1,000 mg Metoprolol Tartrate (Lopressor) 25 mg PO BID [facility] Last Admin: 04/01/18 08:02 Dose: 25 mg Nitroglycerin (Nitrostat) 0.4 mg SL ASDIRECTED PRN PRN Reason: CHEST PAIN Non-Formulary Medication (Methotrexate [Xatmep]) 12.5 mg PO Fr [facility] Last Admin: 03/28/18 12:50 Dose: 12.5 mg Oxycodone HCl (Oxycodone) 5 - 10 mg PO Q4H PRN PRN Reason: MODERATE PAIN Last Admin: 03/29/18 01:04 Dose: 10 mg Pantoprazole Sodium (Protonix) 40 mg PO ACBREAKFAST [facility] Last Admin: 04/01/18 08:02 Dose: 40 mg Polyethylene Glycol (Miralax) 17 gm PO DAILY PRN PRN Reason: DIARRHEA Rosuvastatin Calcium (Crestor) 10 mg PO DAILY [facility] Last Admin: 04/01/18 08:02 Dose: 10 mg Senna/Docusate Sodium (Senna Plus) 1 tab PO BID [facility] Last Admin: 04/01/18 08:02 Dose: 1 tab Tramadol HCl (Ultram) 50 mg PO 0200,0800,1400,2000 [facility] Last Admin: 04/01/18 07:59 Dose: 50 mg Discontinued Medications Acetaminophen (Tylenol) 650 mg PO Q6H [facility] Last Admin: 03/28/18 23:00 Dose: 650 mg Non-Formulary Medication (Methotrexate [Xatmep]) 12.5 mg PO ASDIRECTED [facility] Tramadol HCl (Ultram) 50 mg PO Q6H [facility] Last Admin: 03/28/18 22:59 Dose: 50 mg Tuberculin PPD (Aplisol) 5 unit IDERM ONETIME ONE Stop: 03/24/18 17:56 Last Admin: 03/24/18 18:41 Dose: 5 unit Tuberculin PPD (Aplisol) 5 unit IDERM ONETIME ONE Stop: 03/25/18 09:01
== END 2018-04-01 12:50 | disposition home or self-care (01) | DRG 561 ==
LOC: LB.MS 13:07 → UNDOADMIN 13:07 → LB.MS 15:39 → UNDOADMIN 15:39 → LB.MS 19:58
PROVIDERS: ADMIT Family Medicine; ATTEND Family Medicine
DX: Z47.1 Aftercare following joint replacement surgery (principal); Z96.642 Presence of left artificial hip joint; Z98.890 Other specified postprocedural states; M25.552 Pain in left hip; M62.81 Muscle weakness (generalized); I25.2 Old myocardial infarction; Z95.5 Presence of coronary angioplasty implant and graft; K21.9 Gastro-esophageal reflux disease without esophagitis; M19.90 Unspecified osteoarthritis, unspecified site; E11.9 Type 2 diabetes mellitus without complications; Z79.4 Long term (current) use of insulin; Z87.891 Personal history of nicotine dependence; Z85.038 Personal history of other malignant neoplasm of large intestine; Z11.1 Encounter for screening for respiratory tuberculosis; Z88.8 Allergy status to other drugs, medicaments and biological substances
CPT/HCPCS: 36415; 80048; 82962; 85025; 86580; 97110-GP; 97116-GP; 97161-GP; 97165-GO; 97530-GO; 97530-GP; 97535-GO; A9270-GY; J1815-GY

== ENCOUNTER 2018-12-01 22:10 | Emergency (ER) | payer OTHER, MEDICARE ==
[2018-12-01] MEDS ORDERED: Ciprofloxacin 0.3% Ophth Soln 2.5 ML Bottle ONE (22:30)
--- NOTE | 2018-12-01 23:34 | EDM.PDOC ---
ED HPI GENERAL MEDICAL PROBLEM - General Chief Complaint: General Stated Complaint: EYE INJURY Time Seen by Provider: 12/01/18 22:50 Source of Information: Reports: Patient, Family, RN History Limitations: Reports: No Limitations - History of Present Illness INITIAL COMMENTS - FREE TEXT/NARRATIVE: 73 yr male presents with right eye injury. States a branch from a tree hit him in the eye and now his eye is red. States hx of 2 cardiac stent and is going to cardiac rehab. He is taking Plavix and is concerned of bleeding into the eye. He has had an eye infection in the past and has used eye drops and eye gel. His is with him and assists as needed with putting in eye qtts. His eye care provider is in [place]. - Related Data Allergies Allergy/AdvReac Type Severity Reaction Status Date / Time Kqtchrv-Ifd-Lxf Reductase AdvReac Intermediate Muscle Verified 03/24/18 18:01 Inhibitor Aches Home Meds: Home Meds Chlorthalidone 25 mg PO DAILY 03/24/18 [History] Folic Acid 1 mg PO DAILY 03/24/18 [History] Gabapentin [Neurontin] 300 mg PO TID 03/24/18 [History] Insulin Glargine,Hum.Rec.Anlog [Basaglar Kwikpen U-100] 54 units SQ DAILY [History] Losartan [Cozaar] 50 mg PO DAILY 03/24/18 [History] Methotrexate [Xatmep] 2.5 mg PO ASDIRECTED 03/24/18 [History] Omeprazole 20 mg PO DAILY 03/24/18 [History] Rosuvastatin [Crestor] 10 mg PO DAILY 03/24/18 [History] glipiZIDE [Glucotrol] 10 mg PO DAILY 03/24/18 [History] metFORMIN HCl [Metformin HCl] 1,000 mg PO BID 03/24/18 [History] Past Medical History HEENT History: Reports: None Cardiovascular History: Reports: IA, Stents Gastrointestinal History: Reports: GERD Genitourinary History: Reports: Other (See Below) Other Genitourinary History: renal biopsy done in 2013 Musculoskeletal History: Reports: Arthritis, Osteoarthritis Endocrine/Metabolic History: Reports: Diabetes, Type II Hematologic History: Reports: Anemia Immunologic History: Reports: Other (See Below) Other Immunologic History: takes metotrexate Oncologic (Cancer) History: Reports: Colon - Past Surgical History Musculoskeletal Surgical History: Reports: Arthroscopic Knee, Carpal Tunnel, Hip Replacement, Shoulder Surgery, Other (See Below) Other Musculoskeletal Surgeries/Procedures:: lower back and neck surgery Social & Family History - Family History Family Medical History: Noncontributory - Caffeine Use Caffeine Use: Reports: Coffee, Soda ED ROS GENERAL - Review of Systems Review Of Systems: See Below Constitutional: Reports: No Symptoms HEENT: Reports: Glasses. Denies: Eye Discharge, Eye Pain Respiratory: Reports: No Symptoms Cardiovascular: Reports: No Symptoms ED EXAM, GENERAL - Physical Exam Exam: See Below Exam Limited By: No Limitations General Appearance: Alert, No Apparent Distress Eye Exam: Right Eye: Other (visible abrasion to inner conjunctivae of right eye. ), Bilateral Eye: PERRL Nose: Normal Inspection Throat/Mouth: Normal Inspection, Normal Voice, No Airway Compromise Head: Atraumatic, Normocephalic Neck: Supple, Non-Tender, Full Range of Motion Respiratory/Chest: No Respiratory Distress Course - Re-Assessments/Exams Free Text/Narrative Re-Assessment/Exam: 12/01/18 23:34 redness noted to inner conjunctivae of right eye, conjunctival hemorrhage noted. Sterile saline opth qtt used to eye, blotted dry. Cipro opth , 1 qtt applied to right eye. Recommend F/U tomorrow with eye care provider. Cipro 1 qtt to right eye q 2 hour while awake X 2 days, then qid X 5 days. Use eye patch/gauze to eye and paper tape to prevent injury/scratching to eye while sleeping. Use cold compress/cold pack to eye/eyelid for 15-20 minutes 5xdaily. Departure - Departure Time of Disposition: 23:25 Disposition: Home, Self-Care 01 Clinical Impression: Conjunctival hemorrhage, Conjunctival abrasion - Discharge Information Instructions: Ciprofloxacin otic suspension Referrals: PCP,None [Primary Care Provider] - Forms: ED Department Discharge Additional Instructions: Discharge home. Cipro eye drops 1 drop in right eye every 2 hours for 2 days and then 4 times a day for 5 days. Apply sterile gauze at night to prevent scratching at the eye during the night. Apply ice pack 5 times a day for 15 minutes at a time. Follow up with the eye doctor in the morning. - Assessment/Plan Plan: Recommend F/U tomorrow with eye care provider. Cipro 1 qtt to right eye q 2 hour while awake X 2 days, then qid X 5 days. Use eye patch/gauze to eye and paper tape to prevent injury/scratching to eye while sleeping. Use cold compress/cold pack to eye/eyelid for 15-20 minutes 5xdaily.
== END 2018-12-01 23:25 | disposition home or self-care (01) ==
LOC: LB.ED 22:10
DX: S05.01XA Injury of conjunctiva and corneal abrasion without foreign body, right eye, initial encounter (principal); H11.31 Conjunctival hemorrhage, right eye; K21.9 Gastro-esophageal reflux disease without esophagitis; E11.9 Type 2 diabetes mellitus without complications; I25.2 Old myocardial infarction; M19.90 Unspecified osteoarthritis, unspecified site; Z88.8 Allergy status to other drugs, medicaments and biological substances; Z79.4 Long term (current) use of insulin; Z79.899 Other long term (current) drug therapy; W22.8XXA Striking against or struck by other objects, initial encounter
CPT/HCPCS: 99282; 99283; A9270-GY